=== PATIENT | female | born 1940 | race Native Hawaiian/Other Pacific Islander ===

== ENCOUNTER 2017-04-05 14:02 | Outpatient (CLI) | payer OTHER | END 2017-04-05 14:10 | disposition short-term general hospital (02) | LOC: AMB 14:02 | DX: R41.82 Altered mental status, unspecified (principal); E11.65 Type 2 diabetes mellitus with hyperglycemia | CPT/HCPCS: A0425; A0427 ==

== ENCOUNTER 2017-04-05 14:18 | Inpatient (IN) | payer OTHER ==
[~2017-04-05] VITALS: Ht 157.5 cm; Wt 78.1 kg
[2017-04-05] VITALS (12 sets, daily range): BP systolic 107–146; BP diastolic 67–92; TEMP 97.5–97.7; Ht 157.5 cm; Wt 78.1 kg
[2017-04-05 15:19] LABS: POTASSIUM 3.5 mmol/L (3.6-5.2); SODIUM 132 mmol/L (136-145)
[2017-04-05 15:24] LABS: PLATELET COUNT 98 K/uL (152-353)
[2017-04-05 20:01] LABS: POTASSIUM 2.9 mmol/L (3.6-5.2)
[2017-04-06] VITALS (22 sets, daily range): BP systolic 112–165; BP diastolic 62–100; TEMP 97.3–97.8
[2017-04-06 04:28] LABS: POTASSIUM 3.5 mmol/L (3.6-5.2)
[2017-04-07] VITALS (24 sets, daily range): BP systolic 114–212; BP diastolic 68–104; TEMP 97.2–99.2
[2017-04-07 07:08] LABS: PLATELET COUNT 83 K/uL (152-353)
[2017-04-07 07:09] LABS: POTASSIUM 6.3 mmol/L (3.6-5.2)
[2017-04-08] VITALS (14 sets, daily range): BP systolic 145–202; BP diastolic 62–99; TEMP 97.5–98.3
[2017-04-09] VITALS (20 sets, daily range): BP systolic 140–184; BP diastolic 59–89; TEMP 97.4–98.7
[2017-04-09 07:49] LABS: PLATELET COUNT 92 K/uL (152-353)
[2017-04-09 08:13] LABS: POTASSIUM 6.2 mmol/L (3.6-5.2)
[2017-04-10] VITALS (8 sets, daily range): BP systolic 95–164; BP diastolic 51–70; TEMP 97.4–98.1
[2017-04-10 08:33] LABS: POTASSIUM 4.8 mmol/L (3.6-5.2)
[2017-04-10 08:35] LABS: PLATELET COUNT 83 K/uL (152-353)
[2017-04-11] VITALS: BP 120/53; TEMP 97.9
== END 2017-04-11 13:35 | disposition home or self-care (01) | DRG 871 ==
LOC: ED 14:18 → ICU 16:35 → MED/SURG 04-10 11:45
PROVIDERS: Emergency Medicine; Internal Medicine; Neurological Surgery; ADMIT Internal Medicine
DX: A41.51 Sepsis due to Escherichia coli [E. coli] (principal); J96.01 Acute respiratory failure with hypoxia; N39.0 Urinary tract infection, site not specified; N17.8 Other acute kidney failure; A04.8 Other specified bacterial intestinal infections; B37.0 Candidal stomatitis; R41.82 Altered mental status, unspecified; E10.65 Type 1 diabetes mellitus with hyperglycemia; Z79.4 Long term (current) use of insulin; E87.8 Other disorders of electrolyte and fluid balance, not elsewhere classified
CPT/HCPCS: 36415; 36600; 80048; 80053; 80307; 81000; 82550; 82805; 82947; 82948; 82962; 83036; 83605; 83735; 84100; 84439; 84443; 84481; 84484; 85027; 87015; 87040; 87045; 87077; 87086; 87088; 87186; 87205; 87324; 87328; 87329; 87449; 87899; 93005; 96361; 96365; 96372; 99284; J1956; J0696; J1815; J2405; J2543; J3490

== ENCOUNTER 2018-11-05 18:40 | Emergency (ER) | payer OTHER ==
[~2018-11-05] VITALS: Ht 157.5 cm; Wt 73.5 kg
[2018-11-05 18:44] VITALS: BP 152/90; TEMP 98.4
== END 2018-11-05 20:56 | disposition home or self-care (01) ==
LOC: ED 18:40
DX: L50.6 Contact urticaria (principal); L25.9 Unspecified contact dermatitis, unspecified cause
CPT/HCPCS: 96372; 99282; J2930

== ENCOUNTER 2021-06-30 08:04 | Emergency (ER) | payer OTHER ==
[~2021-06-30] VITALS: Ht 157.5 cm; Wt 73.5 kg
[2021-06-30 08:21] LABS: PLATELET COUNT 211 K/uL (152-353)
[2021-06-30 08:29] LABS: POTASSIUM 3.9 mmol/L (3.6-5.2)
[2021-06-30 08:37] VITALS: TEMP 97.3
[2021-06-30 11:13] VITALS: BP 108/51
== END 2021-06-30 11:15 | disposition short-term general hospital (02) ==
LOC: ED 08:09
PROVIDERS: Emergency Medicine
PROC: 0T9B70Z Drainage of Bladder with Drainage Device, Via Natural or Artificial Opening (ICD-10-PCS; principal; 2021-06-30)
DX: J96.90 Respiratory failure, unspecified, unspecified whether with hypoxia or hypercapnia (principal); I50.9 Heart failure, unspecified; F17.210 Nicotine dependence, cigarettes, uncomplicated; Z11.52 Encounter for screening for COVID-19
CPT/HCPCS: 36600; 51702; 80053; 81000; 82805; 83880; 84484; 85027; 85379; 85610; 87040; 87635; 93005; 94660; 94664; 94760; 96365; 96375; 99285; J0360; J1644; J1940; J1956; J2060; J2270; J2405; U0003